=== PATIENT | female | born 1945 | race Caucasian/White ===

== ENCOUNTER → 2016-05-16 | Outpatient (CLI) | payer MEDICARE | LOC: RAD 08:30 | PROVIDERS: ATTEND Physician Assistant Medical | DX: Z12.31 Encounter for screening mammogram for malignant neoplasm of breast (principal) ==

== ENCOUNTER 2016-07-11 13:00 | Outpatient (RCR) | payer MEDICARE ==
--- NOTE | 2016-05-29 10:34 | PT/OT/ST INITIAL EVALUATION ---
Department of Health and Human Services Form Approved [facility] [employer] Financing [employer] OMB No. [id number] PLAN OF CARE/ASSESSMENT FOR OUTPATIENT REHABILITATION (Complete for Initial Claims Only) 1. LAST NAME Deon FIRST NAME Brandie Ryder 2. ACC # [id number] 3. [facility] [id number] 4. PROVIDER NO. [id number] 5. TYPE: X PT 6. PRIOR THERAPY (Same condition) None 7. PRIMARY DX Status post right total knee arthroplasty 8. SECONDARY DX Limited range of motion, strength, stability and gait at right knee. 9. ONSET DATE 05/22/2016 10. REFERRAL DATE 05/22/2016 11. SOC. DATE/TIME 05/25/2016 11:00 a.m. 12. PRIOR LEVEL OF FUNCTION; PERTINENT HISTORY (Prior therapy results, reason for referral.) S: The patient was referred to physical therapy by Dr. Carter Rivera in [place], [place] with the diagnosis of status post right total knee arthroplasty. The patient reports that she had right knee pain for several years and was having difficulty walking and going up and down stairs. The patient ambulated without assistive device prior to surgery. She lives in a one-level home with 2 steps going into the home. She lives with her . Occupational and social history: The patient is retired. Activity level: She is not very active. Overall health rating: She rates overall health as good. Current pain rating is 5/10. She says the last 24 hours it had reached 10/10. Relieving factors: The patient does get some relief when icing. Past medical history: Right rotator cuff repair x2, right wrist repair, carpal tunnel, arthritis, and hypertension. The patient performed Lower Extremity Functional Index scale and self-scored 50 out of 80. The patient's goal for therapy is to get her right knee working as well as possible. 13. INITIAL ASSESSMENT/SAFETY PRECAUTIONS/MEDICAL COMPLICATIONS (Level of function at start of care. Be specific, use objective measures, list problems.) O: APPEARANCE: The patient is a healthy looking 70-year-old female. She ambulates into physical therapy with a front-wheeled walker with heel-to-toe gait pattern. Minimal weightbearing through walker. Little antalgia noted. GIRTH MEASUREMENT: At medial joint line right knee 44.5 cm, left 39.5 cm. RANGE OF MOTION/FLEXIBILITY: Right knee range of motion -2 degrees from terminal knee extension to 92 degrees flexion. Left knee range of motion 2 degrees hyperextension to 138 degrees flexion. Hamstring flexibility is 70 degrees bilaterally. STRENGTH: The patient demonstrated fair quad firing on the right and was able to perform unassisted straight leg raises. Left hip and knee strength were 5/5 manual muscle test. Increased crepitus noted at left patella. TODAY'S TREATMENT: Included initial evaluation followed by instruction of home exercise program and proper heel-to-toe gait training. The treatment was ended with vasopneumatic cold compression. 14. INITIAL POC: (Specify procedures, modalities, short and jail goals) A: The patient is status post right total knee arthroplasty. PROGNOSIS: The patient is a good candidate for physical therapy to regain range of motion, stabilization and strength at right knee. GOALS: 1. The patient to be compliant with home exercise program in 1 week. 2. The patient to attain full terminal knee extension at right knee in 2 weeks. 3. The patient to attain 115 degrees flexion at right knee in 3 weeks. 4. The patient to be able ascend and descend stairs, alternating steps, with good stability and control in 6 weeks. 5. The patient to ambulate without assistive device with good safety and balance in 6 weeks. 6. The patient to return to normal daily activities with a pain rating of 0 to 1/10 at right knee in 6 weeks. PLAN: The patient will be seen 3 times a week over the next 2 weeks. We will then decrease her down to 2 times a week for 4 weeks. Plan on progressing the patient with range of motion, flexibility, stabilization, and strength at right knee. Modalities and manual therapy will be used as necessary to decrease pain and inflammation. We will continue to progress the patient with a home exercise program and patient education. 15. FUNCTIONAL LEVEL (End of claim period) 16. PHYSICIAN SIGNATURE ? ON FILE OR ENTER HERE: 17. DATE: I certify the need for these services furnished under this plan of care and if for partial hospitalization. 18. CERTIFICATION FROM THROUGH [facility]-[id number]
== END 2016-07-31 12:58 | disposition home or self-care (01) ==
LOC: PT 13:00
PROVIDERS: ATTEND Orthopaedic Surgery
DX: Z47.1 Aftercare following joint replacement surgery (principal); Z96.641 Presence of right artificial hip joint
CPT/HCPCS: 97016; 97110; 97112; 97116; 97140; 97161; G8978; G8979; G8980